=== PATIENT | female | born 1960 | race Two or more races ===

== ENCOUNTER → 2016-04-26 | Outpatient (CLI) | payer OTHER ==
[~2016-04-26] MED LIST: ALEV220C2 PO; BLACCAP2 PO; CLIN300C PO; GABA-283 PO; LASI20TA PO; MIRA1.5T2 PO; MULTCAP8 PO; NEXI40GR PO; TOPA25TA PO; ULTR50TA PO; VENL37.598 PO
--- NOTE | 2016-04-29 00:31 | ECWPNPC ---
PATIENT NAME: DERICK HAYWOOD : 1960 GENDER: FEMALE VISIT DATE: 04/26/2016 DISCHARGE DATE: 04/26/16 1633 VISIT LOCKED DATE TIME: PHYSICIAN: JESSA BUCIO RESOURCE: JESSA BUCIO REASON FOR APPOINTMENT 1. LUMBAR HISTORY OF PRESENT ILLNESS NEW PATIENT CONSULT: WHEN DID YOUR PAIN FIRST START? . BRIEFLY DESCRIBE HOW YOUR PAIN STARTED? . HOW DOES YOUR PAIN CHANGE WITH TIME? . DOES YOUR PAIN AWAKEN YOU FROM SLEEP? . HOW MANY HOURS OF SLEEP DO YOU NORMALLY GET? . ANY DIAGNOSTIC TESTING? . FACILITY WHERE TESTS WERE DONE? ____. PAIN TREATMENT TREATMENT YES CANCER HAVE YOU EVER HAD ANY TYPE OF CANCER?NO NO. PAIN SCREENING: PATIENT HAS A COMPLAINT OF ACUTE OR CHRONIC PAIN YES FALL RISK SCREENING: SCREENING :NO FALLS IN THE PAST YEAR [place] INVENTORY: QUESTIONNAIRE ASSESSEDYES SCORE VALUE CALCULATED YES SCORE: 6/63 DENIES SUICIDAL OR HOMICIDAL IDEATION TODAY'S VISIT: NOTES: REFERRED FROM [facility] NEUROLOGY DR. MICHAEL LEE) FOR CHRONIC LOW BACK PAIN AND IN PARTICULAR TO EXPLORE OPTIONS FOR DORSAL COLUMN STIMULATOR.. 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 THE INJURY WAS NOT UNDER WORKERS COMP. .INITIAL TREATMEN WAS ON [facility], WITH PT, AND MUSCLE RELAXERS, BUT EVENTUALLY SITUATION DETERIORATED AND UNDERWENT A DECOMPRESSION LAMINECTOMY [id number], AND THEN FUSION WITH ANTERIOR/POSTERIOR APPROACH AND CAGE PLACEMENT IN 2015. BOTH SURGERIES PERFORMED BY DR LEE. POST SURGERY , NOTES HAS HAD IMPROVEMENT IN BACK PAIN, BUT IS HAVING SEVERE PAIN IN LEFT LEG. PAIN IS WORSE WITH WALKING - HAS NUMBNESS FROM LATERAL MIDTHIGH TO OLMOS AND 2 MIDDLE TOES, LEFT SIDE. NUMBNESS IS CONSTANT AND PAIN ESCALATES WITH WALKING.. NO RADIATION SPEC FROM BACK HAS NO PAIN ON RIGHT OR WEAKNESS IN RIGHT LEG. STEPS ONE AT AT A TIME. HAS CONTINUED TO WORK NOW AT [employer]. HAS BEEN ABLE TO SLEEP. NOTES DIFFICULTY WITH BALANCE. FALL X 1 LAST YEAR WITH NO NEW INJURY. OCCASIONAL CONSTIPATION BUT NO LACK OF INTERNAL MUSCLE TONE. NO LOSS OF BLADDER CONTROL. NO RECENT PT - IS GOING TO GYM FOR BIKE WORK. HAS HAD INJECTION THERAPY IN THE PAST WITH DR GOLDBERG.HAS PCP DR MAJ MARTINEZ AT [place]. IS VERY INTERESTED IN OPTION OF DORSAL COLUMN STIMULATOR FOR PAIN CONTROL IN LEFT LEG. CURRENT MEDICATIONS TAKING VENLAFAXINE HCL 75 MG TABLET 1 TABLET WITH FOOD ORALLY DAILY TAKING NEXIUM 40 MG CAPSULE DELAYED RELEASE 1 CAPSULE ORALLY ONCE A DAY TAKING MIRAPEX ER 1.5 MG TABLET EXTENDED RELEASE 24 HOUR 1 TABLET ORALLY ONCE A DAY TAKING MULTI COMPLETE - CAPSULE ORALLY TAKING VITAMIN B12 100 MCG TABLET ORALLY TAKING VITAMIN D3 1000 UNIT CAPSULE 1 CAPSULE ORALLY EVERY OTHER DAY TAKING BIOTIN MAXIMUM STRENGTH 5000 MCG CAPSULE 1 CAPSULE ORALLY ONCE A DAY MEDICATION LIST REVIEWED AND RECONCILED WITH THE PATIENT PAST MEDICAL HISTORY NO MEDICAL HISTORY. ALLERGIES PENICILLIN (FOR ALLERGIES USE ONLY): HIVES: ALLERGY SULFA (FOR ALLERGY USE ONLY): HIVES: ALLERGY SURGICAL HISTORY HYSTERECTOMY 1992 GALL BLADDER 2004 TONSILLECTOMY 1977 SPINAL SURGERY - CAGE 2015 GASTRIC BYPASS 2013 FAMILY HISTORY FATHER: , DIAGNOSED WITH OTHER MOTHER: ALIVE 79 YRS, DIAGNOSED WITH DIABETES, HYPERTENSION 2 BROTHER(S) , 3 SISTER(S) - HEALTHY. 3 SON(S) - HEALTHY. . FATHER OF LUNG RELATED ISSUE. SOCIAL HISTORY GENERAL: TOBACCO USE ARE YOU A:NONSMOKER RECREATIONAL DRUG USE DRUG USE?NO CAFFEINE CAFFEINE USE?NO PSYCHOLOGICAL HX TREATMENTNO PAIN CLINIC PFS, CLERGY, PUBLIC HEALTH REFERRALS PFS REFERRAL NEEDED?NO CLERGY REFERRAL NEEDED?NO PUBLIC HEALTH REFERRAL NEEDED?NO WAS THE PROVIDER NOTIFIED OF ANY PERTINENT INFO?YES PATIENT: ____. [facility]VANCED DIRECTIVES HEALTH CARE PROXY?YES NAME OF HCP [facility] CONTACT # FOR HCP [phone] IF YES, DO YOU HAVE A COPY WITH YOU? NO DO YOU HAVE A DNR?NO LIVING WILL?NO POWER OF ACCOUNT ADVISOR?NO REVIEW OF SYSTEMS CONSTITUTIONAL: ANY CHANGE IN YOUR MEDICAL CONDITION? NO . CHILLS NO . FEVER NO . INFECTION: DO YOU HAVE NEW INFECTIONS? NO . DO YOU HAVE HISTORY OF MRSA? NO . MUSCULOSKELETAL: ANY NEW PATTERNS OF PAIN OR NUMBNESS? YES, PT STATES THAT SHE IS HAVING ISSUES WITH PAIN AND NUMBNESS STARTING MID-THIGH AND RADIATES DOWN LEG TO MID OLMOS, NUMBNESS GOES DOWN INTO TOES . SYTEMIC LUPUS NO . GASTROENTEROLOGY: ANY NEW CHANGE IN BOWEL CONTROL? NO . BARRETTS ESOPHAGUS NO . CIRRHOSIS NO . HEPATITIS NO . LIVER FAILURE NO . ACID REFLUX NO . UNEXPLAINED WEIGHT LOSS NO . GENITOURINARY: ANY NEW CHANGE IN BLADDER CONTROL? NO . IS THERE A CHANCE YOU COULD BE ? NO . HEMATOLOGY/LYMPH: DO YOU TAKE ANY BLOOD THINNERS? (FOR EXAMPLE- COUMADIN, PLAVIX, AGGRENOX, PLATEL, PRADAXA, OR XARELTO) NO . WHEN WAS YOUR LAST DOSE? DATE: TIME: . LOW PLATELET COUNT NO . SICKLE CELL DISEASE NO . VON WILLIEBRANDS NO . FACTOR V LEIDEN NO . THALLASEMIA NO . ANEMIA NO . EASY BRUISING NO . NEUROLOGY: MYAASTHENIA GRAVIS NO . RESTLESS LEG SYMPTOMS CURRENTLY ON THERAPY . CARDIOLOGY: DO YOU HAVE A PACEMAKER OR DEFIBRILLATOR? NO . ANGINA NO . HEART ATTACK NO . HEART SURGERY NO . CONGESTIVE HEART FAILURE/FLUID OVERLOAD NO . CHEST PAIN NO . HIGH BLOOD PRESSURE NO . IRREGULAR HEART BEAT NO . RESPIRATORY: HAVE YOU BEEN SICK IN THE PAST WEEK? NO . FEVER NO . FLU LIKE SYMPTOMS? NO . CPAP YES . BYPAP NO . ASTHMA NO . EMPHYSEMA NO . CHRONIC LUNG DISEASES NO . SHORTNESS OF BREATH ON EXERTION NO . DO YOU USE ANY TYPE OF TOBACCO (SMOKE, SMOKELESS, CHEW)? NO . COUGH NO . SNORING NO . INTEGUMENTARY: DO YOU HAVE ANY RASHES OR OPEN SORES? NO . ALLERGIC/IMMUNO: ARE YOU ALLERGIC TO SHELLFISH OR IV DYE? NO . ANY NEW ALLERGIES? NO . PSYCHIATRIC: DO YOU HAVE THOUGHTS OF HURTING YOURSELF OR SOMEONE ELSE? NO . ARE YOU ABUSED, NEGLECTED, OR IN AN UNSAFE ENVIRONMENT? NO . ENDOCRINOLOGY: ARE YOU DIABETIC? NO . THYROID DISORDER NO . OTHER: DO YOU NEED ANY PRESCRIPTIONS? NO . IF YES, PLEASE LIST: ____ . ANY NEW PROBLEMS WITH YOUR MEDICATIONS? NO . WHEN DID YOU LAST EAT? ____ . WHEN DID YOU LAST DRINK? ____ . WHAT DID YOU LAST DRINK? ____ . NAME OF PERSON DRIVING YOU HOME? ____ . DO YOU HAVE ANY OTHER QUESTIONS OR CONCERNS NO . REVIEWED BY: PROVIDER: JESSA DENISE . VITAL SIGNS WT 189.6 LBS, HT 66", BMI 30.60 INDEX, BP 136/84 MM HG, HR 84 /MIN, RR 16 /MIN, TEMP 98.3 F, OXYGEN SAT % 94, SAFE IN ENV? (Y/N) Y, NA INITIALS TL 1516, REVIEWED BY: XIAO. EXAMINATION GENERAL EXAMINATION: PSYCHALERT , ORIENTED X 3 , APPROPRIATE MOOD AND AFFECT , GOOD EYE CONTACT. HEENT:NORMOCEPHALIC, NO LYMPHADENOPATHY, NO THYROMEGLY. LUNGS:CLEAR TO AUSCULTATION BILATERALLY, NO WHEEZES, RALES OR RHONCHI. HEART:HEART RATE REGULAR, NORMAL S1S2, NO MURMURS, CLICK OR RUBS, NO CAROTID BRUITS. MUSCULOSKELETAL:WELL HEALED SURGICAL INCISION OVER MIDLINE LUMBAR SPINOUS PROCESSES AND 3 SMALLER INCISIONS ON EACH SIDE OF THE CENTER INCISION. ALSO HAS LEFT FLANK/ABDOMENAL INCISION. MINIMAL TENDERNESS OVER LUMBAR SPINOUS PROCESSES AND ACROSS THE SACRUM. SOME TENDERNESS NOTED AT THE BILATERAL LEFT > RIGHT SACRAL ILIAC JOINTS. NO PAIN WITH SLR OR PATRICKS TESTING. TENDERNESS WITH PELVIC COMPRESSION OVER LOW BACK. MUSCLE STRENGTH 5-/5BILATERAL LOWER EXTREMITIES. CAN FLEX TO 75 DEGREES, EXTEND TO 10 DEGREES, AND ROTATION SIDE TO SIDE IS POOR. . NEUROLOGIC EXAM:DECREASED SENSATION LEFT LATERAL THIGH AND CALF. DTR'S 1+ BILATERAL UPPER EXTREMITIES, 1+ LEFT LOWER EXTREMITY, 2+ RIGHT LOWER EXTREMITY. PLANTAR RESPONSE IS EQUIVICAL, NO CLONUS. DIAGNOSTIC TESTS REVIEWED XRAYS OF LUMBAR SPINE COMPLETED 11/10/15: DEMONSTRATES POSTOP CHANGES FOLLOWING LUMBAR FUSION AND DISCECTOMY FROM L2 THROUGH L5. APPARENT LUCENCY ACROSS THE ANTERIOR L2 -L3 DIES SPACE. THIS WAS DISCUSSED BY THE RADIOLOGIST WITH DR LEE. CONTINUED SURVEILLANCE RECOMMENDED. STABLE DEGENERATIVE DIS DISEASE AT L1-2 AND L4-5 . 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 WILL REQUEST PSYCH [facility] FOR DORSAL COLUMN STIM TRIAL. REFERRAL TO:[facility] REASON:REFERRED BY DR. LEE FOR DCS. PROCEDURE CODES FA211 ESTABILISHED PATIENT [facility] FACILITY CHARGE DISPOSITION & COMMUNICATION FOLLOW UP F?U WITH DR GOLDBERG TO DISCUSS DORSAL COLUMN STIM. ELECTRONICALLY SIGNED BY KAY FORRESTER ON 04/28/2016 AT 09:07 AM EST DISCLAIMER : THIS IS A VISIT SUMMARY EXTRACTED FROM THE [employer] CHART. IT IS NOT A COPY OF THE [employer] PROGRESS NOTE. MTDD
== END ==
LOC: M PAIN 15:20
PROVIDERS: ATTEND Nurse Practitioner Family
DX: G89.29 Other chronic pain (principal); M54.16 Radiculopathy, lumbar region; M96.1 Postlaminectomy syndrome, not elsewhere classified; Z88.0 Allergy status to penicillin; Z88.2 Allergy status to sulfonamides; Z79.899 Other long term (current) drug therapy

== ENCOUNTER → 2016-05-18 | Outpatient (CLI) | payer OTHER | END | disposition home or self-care (01) | LOC: M PAIN 15:40 | PROVIDERS: ATTEND Anesthesiology | DX: Z09 Encounter for follow-up examination after completed treatment for conditions other than malignant neoplasm (principal); G89.29 Other chronic pain; M96.1 Postlaminectomy syndrome, not elsewhere classified; M54.16 Radiculopathy, lumbar region; Z79.899 Other long term (current) drug therapy; Z88.0 Allergy status to penicillin; Z88.2 Allergy status to sulfonamides ==

== ENCOUNTER → 2016-05-29 | Outpatient (CLI) | payer OTHER ==
--- NOTE | 2016-05-29 19:02 | REP ---
MRI study of the thoracic spine without contrast: History: Sharp stabbing pain in the upper back. Left-sided leg and foot numbness. Technique: Sagittal and axial T1 and T2-weighted scans are acquired in the usual fashion with and without fat saturation. Sequences include spin echo, turbo spin-echo, and STIR imaging sequences. MRI findings: Thoracic vertebral body heights are preserved. Alignment is normal. Incidental note is made of an aberrant right subclavian artery coursing posterior to the trachea and esophagus in the upper mediastinum. No other extra spinal abnormality is appreciated. Cortical and medullary bone signal intensity are normal. Thoracic spinal cord is normal in coarse, caliber and signal intensity on T1 and T2-weighted scans. There is diffuse multilevel degenerative disc disease in the mid and lower thoracic spine levels. Sagittal and axial images demonstrate a right-sided focal disc herniation at the T7-8 level effacing the ventral margin of the thecal sac, but not compressing the cord. At T8-9, there is also a small right posterior disc protrusion. A small central disc protrusion is seen at T10-11. No other thoracic disc herniation is seen. No neural foraminal lesion is seen. Conus medullaris is normal in position and appearance at the T12-L1. Impression: Degenerative spondylosis changes as above with several small thoracic disc protrusions. No cord compression seen. Incidental note is made of an aberrant right subclavian artery. Signed by Jim Martinez MD 05/29/2016 07:39 P
== END ==
LOC: M RAD 15:19
PROVIDERS: ATTEND Nurse Practitioner Family
DX: Z12.31 Encounter for screening mammogram for malignant neoplasm of breast (principal); M54.16 Radiculopathy, lumbar region; M47.814 Spondylosis without myelopathy or radiculopathy, thoracic region; M51.24 Other intervertebral disc displacement, thoracic region
CPT/HCPCS: 72146; G0202

== ENCOUNTER → 2016-05-29 | Outpatient (CLI) | payer OTHER ==
--- NOTE | 2016-05-29 16:49 | REPMRS ---
Patient History The patient states she had a clinical breast exam in April 2016.Patient is postmenopausal. Took hormonal contraceptives for 2 years. Took unspecified hormones for 3 years. Digital Mammo Screening Bilat: May 29, 2016 - Exam #: [id number] Bilateral CC and MLO view(s) were taken. Technologist: Tiki Baltazar, Technologist Prior study comparison: September 26, 2013, bilateral bilat screen digital mammo, performed at [facility] 2011, bilateral bilat screen digital mammo, performed at [facility]. FINDINGS: There are scattered fibroglandular densities. There has been no change in the appearance of the mammogram from the prior studies. There is a mild amount of residual fibroglandular tissue which is fairly symmetric. There is no interval development of dominant mass, architectural distortion, or clustered microcalcification suggestive of malignancy. ASSESSMENT: BI-RADS/ACR category 1 mammogram. Negative. Recommendation Routine screening mammogram in 1 year (for women over age 40). This mammogram was interpreted with the aid of an FDA-approved computer-aided dectection system. Electronically Signed By: Zander Blount MD 05/29/16 2014
== END ==
LOC: M RAD 15:31
PROVIDERS: ATTEND Physician Assistant
DX: Z12.31 Encounter for screening mammogram for malignant neoplasm of breast (principal)

== ENCOUNTER → 2016-07-04 | Outpatient (CLI) | payer OTHER ==
--- NOTE | 2016-07-15 00:31 | ECWPNPC ---
PATIENT NAME: DERICK HAYWOOD : 1960 GENDER: FEMALE VISIT DATE: 07/04/2016 DISCHARGE DATE: 07/04/161653 VISIT LOCKED DATE TIME: PHYSICIAN: KAR GOLDBERG RESOURCE: KAR GOLDBERG HISTORY OF PRESENT ILLNESS HISTORY OF PRESENT ILLNESS: PAIN THE PATIENT DESCRIBES THE PAIN... 55 YEAR OLD FEMALE PATIENT WITH HISTORY OF CHRONIC LOW BACK PAIN. PATIENT DESCRIBES THE PAIN ACHING AND HAVING IT ALL THE TIME WITH A PAIN SCORE OF 5/10 ON TODAY'S VISIT. PATIENT REPORTS HURTING HER BACK IN 1999 WHILE MOVING A PATIENT. PATIENT HAS TRIED PHYSICAL THERAPY THAT DID NOT GIVE HER LONG LASTING RELIEF AND HAS ALSO TRIED INJECTIONS. PATIENT RECEIVED A BACK SURGERY IN 2015 AND STATES THAT IT DID AID IN PAIN RELIEF BUT SHE STILL HAS PAIN DAILY. PATIENT REPORTS THAT SHE HAS COMPLETED THE PSYCHOLOGICAL EVALUATION. PATIENT DENIES UNEXPLAINABLE WEIGHT LOSS, FEVER, CHILLS, NEW CHANGES ON HER URINARY OR BOWEL CONTROL. FALL RISK SCREENING: SCREENING :NO FALLS IN THE PAST YEAR CURRENT MEDICATIONS TAKING GABAPENTIN 300 MG CAPSULE 1 CAPSULE ORALLY FOR PAIN THREE TIMES A DAY, NOTES: ONLY TAKES TWICE A DAY TAKING VENLAFAXINE HCL 75 MG TABLET 1 TABLET WITH FOOD ORALLY DAILY TAKING NEXIUM 40 MG CAPSULE DELAYED RELEASE 1 CAPSULE ORALLY ONCE A DAY TAKING MIRAPEX ER 1.5 MG TABLET EXTENDED RELEASE 24 HOUR 1 TABLET ORALLY ONCE A DAY TAKING MULTI COMPLETE - CAPSULE ORALLY TAKING VITAMIN B12 100 MCG TABLET ORALLY TAKING VITAMIN D3 1000 UNIT CAPSULE 1 CAPSULE ORALLY EVERY OTHER DAY TAKING BIOTIN MAXIMUM STRENGTH 5000 MCG CAPSULE 1 CAPSULE ORALLY ONCE A DAY MEDICATION LIST REVIEWED AND RECONCILED WITH THE PATIENT ALLERGIES PENICILLIN (FOR ALLERGIES USE ONLY): HIVES: ALLERGY SULFA (FOR ALLERGY USE ONLY): HIVES: ALLERGY REVIEW OF SYSTEMS CONSTITUTIONAL: ANY CHANGE IN YOUR MEDICAL CONDITION? NO . CHILLS NO . FEVER NO . INFECTION: DO YOU HAVE NEW INFECTIONS? NO . DO YOU HAVE HISTORY OF MRSA? NO . MUSCULOSKELETAL: ANY NEW PATTERNS OF PAIN OR NUMBNESS? YES, PAIN IN TOES NOW IS NUMB AND TOP OF THE FOOT IS NUMB TOO . GASTROENTEROLOGY: ANY NEW CHANGE IN BOWEL CONTROL? NO . GENITOURINARY: ANY NEW CHANGE IN BLADDER CONTROL? NO . IS THERE A CHANCE YOU COULD BE ? NO . HEMATOLOGY/LYMPH: DO YOU TAKE ANY BLOOD THINNERS? (FOR EXAMPLE- COUMADIN, PLAVIX, AGGRENOX, PLATEL, PRADAXA, OR XARELTO) NO . WHEN WAS YOUR LAST DOSE? DATE: TIME: . NEUROLOGY: HAVE YOU FALLEN IN THE PAST 6 MONTHS? YES, STUMBLED YESTERDAY AND FELL WITHIN LAST 4 MONTHS . ANY NEW EXTREMITY NUMBNESS OR WEAKNESS? NO . CARDIOLOGY: DO YOU HAVE A PACEMAKER OR DEFIBRILLATOR? NO . RESPIRATORY: HAVE YOU BEEN SICK IN THE PAST WEEK? NO . FEVER NO . FLU LIKE SYMPTOMS? NO . COUGH NO . INTEGUMENTARY: DO YOU HAVE ANY RASHES OR OPEN SORES? NO . ALLERGIC/IMMUNO: ARE YOU ALLERGIC TO SHELLFISH OR IV DYE? NO . ANY NEW ALLERGIES? NO . PSYCHIATRIC: DO YOU HAVE THOUGHTS OF HURTING YOURSELF OR SOMEONE ELSE? NO . ARE YOU ABUSED, NEGLECTED, OR IN AN UNSAFE ENVIRONMENT? NO . ENDOCRINOLOGY: ARE YOU DIABETIC? NO . OTHER: DO YOU NEED ANY PRESCRIPTIONS? NO . IF YES, PLEASE LIST: ____ . ANY NEW PROBLEMS WITH YOUR MEDICATIONS? NO . WHEN DID YOU LAST EAT? ____ . WHEN DID YOU LAST DRINK? ____ . WHAT DID YOU LAST DRINK? ____ . NAME OF PERSON DRIVING YOU HOME? ____ . DO YOU HAVE ANY OTHER QUESTIONS OR CONCERNS NO . REVIEWED BY: PROVIDER: . VITAL SIGNS WT 197.0 LBS, HT 66", BMI 31.79 INDEX, BP 129/77 MM HG, HR 84 /MIN, RR 16 /MIN, TEMP 98.5 F, OXYGEN SAT % 97%, NA INITIALS TL 1526. EXAMINATION : PATIENT IS ALERT O X 3 AND COOPERATIVE. ANTALGIC GAIT. LIMPING FROM LEFT LEG. THERE IS TENDERNESS IN THE LOW BACK PARASPINAL SPINAL MUSCLE GROUP. LEFT LEG IS WEAKER THEN THE RIGHT AT EXTENSION AND FLEXION. MRI OF THE LUMBAR SPINE DONE ON 12/15/15 SHOWS POSTOPERATIVE CHANGES, STENOSIS AT L4-L5, HYPERTROPHY, AND FLUID FROM L2-L3 TO L3-L4. ASSESSMENTS SPONDYLOSIS WITHOUT MYELOPATHY OR RADICULOPATHY, LUMBAR REGION - M47.816 (PRIMARY) SPONDYLOSIS WITHOUT MYELOPATHY OR RADICULOPATHY, LUMBOSACRAL REGION - M47.817 LOW BACK PAIN - M54.5 TREATMENT SPONDYLOSIS WITHOUT MYELOPATHY OR RADICULOPATHY, LUMBAR REGION NOTES: WE DISCUSSED SEVERAL ISSUES WITH [facility]'S PAIN MANAGEMENT CASE. AT THIS TIME THE PATIENT WILL CONTINUE ON THE SAME MEDICATION REGIMEN BEFORE. I DISCUSSED WITH THE PATIENT ABOUT THE RESULTS OF THE THORACIC MRI DONE ON 05/29/2016 THAT SHOWS AN INCIDENTAL NOTE IS MADE OF AN ABERRANT RIGHT SUBCLAVIAN ARTERY COURSING POSTERIOR TO THE TRACHEA AND ESOPHAGUS IN THE UPPER MEDIASTINUM. AFTER EXAMINING THE PATIENT AND REVIEWING THE LUMBAR MRI, PATIENT IS A GOOD CANDIDATE FOR A LUMBAR FACET BLOCK INJECTION THERAPEUTIC. WE DISCUSSED THE RISK, BENEFITS, AND ALTERNATIVES AND THE PATIENT WOULD LIKE TO PROCEED, PATIENT WILL BE BOOKED PENDING APPROVAL. PATIENT REPORTS THAT SHE IS SEEING DR. LEE IN 2 TO 3 WEEKS FOR ANOTHER CONSULT. PATIENT WILL FOLLOW UP WITH ME IN 3 WEEKS. INSTRUCTIONS WERE GIVEN, QUESTIONS WERE ANSWERED, PATIENT REPORTS UNDERSTANDING AND AGREES WITH THE PLAN. I, SHIREEN CASTANEDA, DOCUMENTED THE ABOVE INFORMATION ACTING A SCRIBE FOR DR. GOLDBERG. I HAVE REVIEWED THE ABOVE DOCUMENT, WRITTEN BY SHIREEN CASTANEDA SCRIBBlair AND I VERIFY THAT IT IS ACCURATE. PROCEDURE CODES FA211 ESTABILISHED PATIENT [facility] CHARGE G8730 PAIN ASSESS POS TOOL F/U PLAN DOC G8427 DOC MEDS VERIFIED W/PT OR RE DISPOSITION & COMMUNICATION FOLLOW UP 3 WEEKS ELECTRONICALLY SIGNED BY KAR GOLDBERG MD ON 07/14/2016 AT 04:03 PM EDT DISCLAIMER : THIS IS A VISIT SUMMARY EXTRACTED FROM THE [employer] CHART. IT IS NOT A COPY OF THE [employer] PROGRESS NOTE. CATERINA
== END ==
LOC: M PAIN 15:00
PROVIDERS: ATTEND Anesthesiology
DX: M47.816 Spondylosis without myelopathy or radiculopathy, lumbar region (principal); M47.817 Spondylosis without myelopathy or radiculopathy, lumbosacral region; M54.5 Low back pain; G89.29 Other chronic pain; Z88.0 Allergy status to penicillin; Z88.3 Allergy status to other anti-infective agents; Z79.899 Other long term (current) drug therapy

== ENCOUNTER → 2016-07-28 | Outpatient (CLI) | payer OTHER ==
--- NOTE | 2016-08-08 02:29 | ECWPNPC ---
PATIENT NAME: DERICK HAYWOOD : 1960 GENDER: FEMALE VISIT DATE: 07/28/2016 DISCHARGE DATE: 07/28/16 1529 VISIT LOCKED DATE TIME: PHYSICIAN: KAR GOLDBERG RESOURCE: AKR GOLDBERG REASON FOR APPOINTMENT 1. LOW BACK PAIN HISTORY OF PRESENT ILLNESS HISTORY OF PRESENT ILLNESS: PAIN THE PATIENT DESCRIBES THE PAIN... 55 YEAR OLD FEMALE PATIENT WITH HISTORY OF CHRONIC LOW BACK PAIN. PATIENT DESCRIBES THE PAIN ACHING AND HAVING IT ALL THE TIME WITH A PAIN SCORE OF 5/10 ON TODAY'S VISIT. PATIENT REPORTS HURTING HER BACK IN 1999 WHILE MOVING A PATIENT. PATIENT HAS TRIED PHYSICAL THERAPY THAT DID NOT GIVE HER LONG LASTING RELIEF AND HAS ALSO TRIED INJECTIONS. PATIENT RECEIVED A BACK SURGERY IN 2015 AND STATES THAT IT DID AID IN PAIN RELIEF BUT SHE STILL HAS PAIN DAILY .PATIENT DENIES UNEXPLAINABLE WEIGHT LOSS, FEVER, CHILLS, NEW CHANGES ON HER URINARY OR BOWEL CONTROL. FALL RISK SCREENING: SCREENING :NO FALLS IN THE PAST YEAR CURRENT MEDICATIONS TAKING GABAPENTIN 300 MG CAPSULE 1 CAPSULE ORALLY FOR PAIN 2 TIMES A DAY TAKING VENLAFAXINE HCL 75 MG TABLET 1 TABLET WITH FOOD ORALLY DAILY TAKING NEXIUM 40 MG CAPSULE DELAYED RELEASE 1 CAPSULE ORALLY ONCE A DAY TAKING MIRAPEX ER 1.5 MG TABLET EXTENDED RELEASE 24 HOUR 1 TABLET ORALLY ONCE A DAY TAKING MULTI COMPLETE - CAPSULE ORALLY DAILY TAKING VITAMIN B12 100 MCG TABLET ORALLY EVERY OTHER DAY TAKING VITAMIN D3 1000 UNIT CAPSULE 1 CAPSULE ORALLY ONCE A DAY TAKING BIOTIN MAXIMUM STRENGTH 5000 MCG CAPSULE 1 CAPSULE ORALLY ONCE A DAY MEDICATION LIST REVIEWED AND RECONCILED WITH THE PATIENT PAST MEDICAL HISTORY CHRONIC PAIN ALLERGIES PENICILLIN (FOR ALLERGIES USE ONLY): HIVES: ALLERGY SULFA (FOR ALLERGY USE ONLY): HIVES: ALLERGY SURGICAL HISTORY HYSTERECTOMY 1992 GALL BLADDER 2004 TONSILLECTOMY 1978 SPINAL SURGERY - CAGE 2016 GASTRIC BYPASS 2014 FAMILY HISTORY FATHER: , DIAGNOSED WITH OTHER MOTHER: ALIVE 79 YRS, DIAGNOSED WITH DIABETES, HYPERTENSION FATHER OF LUNG RELATED ISSUE. SOCIAL HISTORY GENERAL: TOBACCO USE ARE YOU A:NONSMOKER RECREATIONAL DRUG USE DRUG USE?NO CAFFEINE CAFFEINE USE?NO DENOMINATIONAL DENOMINATIONAL NO PREFERENCE LEARNING BARRIERS / SPECIAL NEEDS CHANGE FROM LAST VISIT?NO BARRIERS TO LEARNING?NO HEARING IMPAIRED?NO VISION IMPAIRED?YES :CORRECTIVE LENSES COGNITIVELY IMPAIRED?NO READINESS TO LEARN?NO LEARNING PREFERENCES?NO LEARNING CAPABILITIES PRESENT?NO EMOTIONAL BARRIERS?NO SPECIAL DEVICES?NO CONTROL SYSTEMS DRAFTING OFFICER NEEDED?NO PSYCHOLOGICAL HX TREATMENTNO PAIN CLINIC PFS, CLERGY, PUBLIC HEALTH REFERRALS PFS REFERRAL NEEDED?NO CLERGY REFERRAL NEEDED?NO PUBLIC HEALTH REFERRAL NEEDED?NO WAS THE PROVIDER NOTIFIED OF ANY PERTINENT INFO?YES PATIENT: ____. [facility] DIRECTIVES HEALTH CARE PROXY?YES NAME OF HCP [facility] CONTACT # FOR HCP [phone] DO YOU HAVE A COPY WITH YOU? NO POWER OF SENIOR REACTOR OPERATOR?NO HOSPITALIZATION/MAJOR DIAGNOSTIC PROCEDURE SURGERIES REVIEW OF SYSTEMS CONSTITUTIONAL: ANY CHANGE IN YOUR MEDICAL CONDITION? NO . CHILLS NO . FEVER NO . INFECTION: DO YOU HAVE NEW INFECTIONS? NO . DO YOU HAVE HISTORY OF MRSA? NO . MUSCULOSKELETAL: ANY NEW PATTERNS OF PAIN OR NUMBNESS? NO . GASTROENTEROLOGY: ANY NEW CHANGE IN BOWEL CONTROL? NO . GENITOURINARY: ANY NEW CHANGE IN BLADDER CONTROL? NO . IS THERE A CHANCE YOU COULD BE ? NO . HEMATOLOGY/LYMPH: DO YOU TAKE ANY BLOOD THINNERS? (FOR EXAMPLE- COUMADIN, PLAVIX, AGGRENOX, PLATEL, PRADAXA, OR XARELTO) NO . WHEN WAS YOUR LAST DOSE? DATE: TIME: . NEUROLOGY: HAVE YOU FALLEN IN THE PAST 6 MONTHS? YES . ANY NEW EXTREMITY NUMBNESS OR WEAKNESS? NO . CARDIOLOGY: DO YOU HAVE A PACEMAKER OR DEFIBRILLATOR? NO . RESPIRATORY: HAVE YOU BEEN SICK IN THE PAST WEEK? NO . FEVER NO . FLU LIKE SYMPTOMS? NO . COUGH NO . INTEGUMENTARY: DO YOU HAVE ANY RASHES OR OPEN SORES? NO . ALLERGIC/IMMUNO: ARE YOU ALLERGIC TO SHELLFISH OR IV DYE? NO . ANY NEW ALLERGIES? NO . PSYCHIATRIC: DO YOU HAVE THOUGHTS OF HURTING YOURSELF OR SOMEONE ELSE? NO . ARE YOU ABUSED, NEGLECTED, OR IN AN UNSAFE ENVIRONMENT? NO . ENDOCRINOLOGY: ARE YOU DIABETIC? NO . OTHER: DO YOU NEED ANY PRESCRIPTIONS? NO . IF YES, PLEASE LIST: ____ . ANY NEW PROBLEMS WITH YOUR MEDICATIONS? NO . WHEN DID YOU LAST EAT? ____ . WHEN DID YOU LAST DRINK? ____ . WHAT DID YOU LAST DRINK? ____ . NAME OF PERSON DRIVING YOU HOME? ____ . DO YOU HAVE ANY OTHER QUESTIONS OR CONCERNS NO . REVIEWED BY: PROVIDER: KAR GOLDBERG MD . VITAL SIGNS WT 198.8 LBS, HT 66", BMI 32.08 INDEX, BP 123/73 MM HG, HR 78 /MIN, RR 16 /MIN, TEMP 99.6 F, OXYGEN SAT % 98%, NA INITIALS SC14:42, REVIEWED BY: PETTY. EXAMINATION : PATIENT IS ALERT O X 3 AND COOPERATIVE. ANTALGIC GAIT. LIMPING FROM LEFT LEG. THERE IS TENDERNESS IN THE LOW BACK PARASPINAL SPINAL MUSCLE GROUP. LEFT LEG IS WEAKER THEN THE RIGHT AT EXTENSION AND FLEXION. MRI OF THE LUMBAR SPINE DONE ON 12/15/15 SHOWS POSTOPERATIVE CHANGES, STENOSIS AT L4-L5, HYPERTROPHY, AND FLUID FROM L2-L3 TO L3-L4. THORACIC MRI SHOWS ENOUGH ROOM FOR THE LEADS TO PASS THROUGH. ASSESSMENTS LOW BACK PAIN - M54.5 (PRIMARY) RADICULOPATHY, LUMBAR REGION - M54.16 TREATMENT LOW BACK PAIN NOTES: WE DISCUSSED SEVERAL ISSUES WITH MRS. [facility]'S PAIN MANAGEMENT CASE. AT THIS TIME THE PATIENT WILL CONTINUE USING GABAPENTIN FOR THE NEUROPATHIC PAIN. PATIENT'S LUMBAR AND THORACIC MRI SHOWS ENOUGH ROOM FOR THE LEADS TO PASS AND THE PATIENT HAS COMPLETED THE PSYCHOLOGICAL EVALUATION. AT THIS TIME WE WILL REQUEST AUTHORIZATION FOR THE DCS TRIAL. PATIENT IS AWARE OF THE RISKS, BENEFITS, AND ALTNERATIVES TO THE DCS AND SHE WOULD LIKE TO PROCEED AT THIS TIME. INSTRUCTIONS WERE GIVEN, QUESTIONS WERE ANSWERED, PATIENT REPORTS UNDERSTANDING AND AGREES WITH THE PLAN. I, NEREYDA SCRUGGS, DOCUMENTED THE ABOVE INFORMATION ACTING A SCRIBE FOR DR. GOLDBERG. I HAVE REVIEWED THE ABOVE DOCUMENT, WRITTEN BY NEREYDA HAYS AND I VERIFY THAT IT IS ACCURATE. OTHERS REFILL GABAPENTIN CAPSULE, 300 MG, 1 CAPSULE, ORALLY FOR PAIN, BID FOR PAIN, 30 DAY(S), 60, REFILLS 2 PROCEDURE CODES FA211 ESTABILISHED PATIENT [facility] FACILITY CHARGE G8427 DOC MEDS VERIFIED W/PT OR RE G8730 PAIN ASSESS POS TOOL F/U PLAN DOC DISPOSITION & COMMUNICATION FOLLOW UP 6 WEEKS ELECTRONICALLY SIGNED BY KAR GOLDBERG MD ON 08/07/2016 AT 03:35 PM EDT DISCLAIMER : THIS IS A VISIT SUMMARY EXTRACTED FROM THE [employer] CHART. IT IS NOT A COPY OF THE [employer] PROGRESS NOTE. MTDD
== END ==
LOC: M PAIN 14:00
PROVIDERS: ATTEND Anesthesiology
DX: M54.16 Radiculopathy, lumbar region (principal); G89.29 Other chronic pain; Z79.899 Other long term (current) drug therapy; Z88.0 Allergy status to penicillin; Z88.2 Allergy status to sulfonamides

== ENCOUNTER → 2016-10-26 | Outpatient (CLI) | payer OTHER ==
[~2016-10-26] MED LIST changes: +PROT1TAB2 PO
--- NOTE | 2016-10-27 23:50 | ECWPNPC ---
PATIENT NAME: DERICK HAYWOOD : 1960 GENDER: FEMALE VISIT DATE: 10/26/2016 DISCHARGE DATE: 10/26/16 1620 VISIT LOCKED DATE TIME: PHYSICIAN: KAR GOLDBERG RESOURCE: KAR GOLDBERG REASON FOR APPOINTMENT 1. PRE OP HISTORY OF PRESENT ILLNESS HISTORY OF PRESENT ILLNESS: PAIN THE PATIENT DESCRIBES THE PAIN... 55 YEAR OLD FEMALE PATIENT WITH HISTORY OF CHRONIC LOW BACK PAIN. PATIENT DESCRIBES THE PAIN ACHING AND HAVING IT ALL THE TIME. PATIENT HAS A PAIN SCORE OF 4/10 AT TODAY'S VISIT. PATIENT REPORTS HURTING HER BACK IN 1999 WHILE MOVING A PATIENT. MRS. HAYWOOD HAS TRIED PHYSICAL THERAPY THAT DID NOT GIVE HER LONG LASTING RELIEF AND HAS ALSO TRIED INJECTIONS. PATIENT RECEIVED A BACK SURGERY IN 2015 AND STATES THAT IT DID AID IN PAIN RELIEF BUT SHE STILL HAS PAIN DAILY. PATIENT REPORTS THAT SHE HAS COMPLETED THE PSYCHOLOGICAL EVALUATION AND HAS HAD A LUMBAR MRI AND A THORACIC MRI. MRS. HAYWOOD STATES THAT SHE DOES WANT TO MOVE FORWARD WITH THE DCS TRIAL WITH [employer] BUT WANTS TO WAIT TILL DECEMBER TO DO IT. PATIENT HAS PATIENT DENIES UNEXPLAINABLE WEIGHT LOSS, FEVER, CHILLS, NEW CHANGES ON HER URINARY OR BOWEL CONTROL. FALL RISK SCREENING: SCREENING :NO FALLS IN THE PAST YEAR CURRENT MEDICATIONS TAKING GABAPENTIN 300 MG CAPSULE 1 CAPSULE ORALLY FOR PAIN BID FOR PAIN TAKING VENLAFAXINE HCL 75 MG TABLET 1 TABLET WITH FOOD ORALLY DAILY TAKING MIRAPEX ER 1.5 MG TABLET EXTENDED RELEASE 24 HOUR 1 TABLET ORALLY ONCE A DAY TAKING MULTI COMPLETE - CAPSULE ORALLY DAILY TAKING VITAMIN B12 100 MCG TABLET ORALLY EVERY OTHER DAY TAKING VITAMIN D3 1000 UNIT CAPSULE 1 CAPSULE ORALLY ONCE A DAY TAKING BIOTIN MAXIMUM STRENGTH 5000 MCG CAPSULE 1 CAPSULE ORALLY ONCE A DAY TAKING PROTONIX 40 MG TABLET DELAYED RELEASE 1 TABLET ORALLY ONCE A DAY TAKING PREVACID 15 MG CAPSULE DELAYED RELEASE 1 CAPSULE ORALLY ONCE A DAY NOT-TAKING NEXIUM 40 MG CAPSULE DELAYED RELEASE 1 CAPSULE ORALLY ONCE A DAY MEDICATION LIST REVIEWED AND RECONCILED WITH THE PATIENT PAST MEDICAL HISTORY CHRONIC PAIN ALLERGIES PENICILLIN (FOR ALLERGIES USE ONLY): HIVES: ALLERGY SULFA (FOR ALLERGY USE ONLY): HIVES: ALLERGY SURGICAL HISTORY HYSTERECTOMY 1992 GALL BLADDER 2004 TONSILLECTOMY 1977 SPINAL SURGERY - CAGE 2016 GASTRIC BYPASS 2013 FAMILY HISTORY FATHER: , DIAGNOSED WITH OTHER MOTHER: ALIVE 79 YRS, DIAGNOSED WITH DIABETES, HYPERTENSION SON(S): ALIVE 2 BROTHER(S) , 3 SISTER(S) . FATHER OF LUNG RELATED ISSUEPT HAS 3 SONS. SOCIAL HISTORY GENERAL: TOBACCO USE ARE YOU A:FORMER SMOKER HOW LONG HAS IT BEEN SINCE YOU LAST SMOKED?> 10 YEARS LUNG CANCER SCREENING SMOKING STATUS:FORMER SMOKER RECREATIONAL DRUG USE DRUG USE?NO CAFFEINE CAFFEINE USE?NO RASTAFARIAN RASTAFARIAN NO PREFERENCE LEARNING BARRIERS / SPECIAL NEEDS CHANGE FROM LAST VISIT?NO BARRIERS TO LEARNING?NO HEARING IMPAIRED?NO VISION IMPAIRED?YES :CORRECTIVE LENSES COGNITIVELY IMPAIRED?NO READINESS TO LEARN?NO LEARNING PREFERENCES?NO LEARNING CAPABILITIES PRESENT?NO EMOTIONAL BARRIERS?NO SPECIAL DEVICES?NO ORANGE GROWER NEEDED?NO PSYCHOLOGICAL HX TREATMENTNO PAIN CLINIC PFS, CLERGY, PUBLIC HEALTH REFERRALS PFS REFERRAL NEEDED?NO CLERGY REFERRAL NEEDED?NO PUBLIC HEALTH REFERRAL NEEDED?NO WAS THE PROVIDER NOTIFIED OF ANY PERTINENT INFO?YES HAS THE PATIENT BEEN EDUCATED REGARDING HIS/HER PLAN OF CARE?YES HAS THE PATIENT BEEN EDUCATED REGARDING PAIN, THE RISK FOR PAIN, THE IMPORTANCE OF EFFECTIVE PAIN MANAGEMENT, AND THE PAIN ASSESSMENT PROCESS?YES PATIENT: ____. ADVANCE DIRECTIVES HEALTH CARE PROXY?YES NAME OF HCP [facility] CONTACT # FOR HCP [phone] DO YOU HAVE A COPY WITH YOU? NO DO YOU HAVE A DNR?NO WOULD YOU LIKE MORE INFORMATION?NO LIVING WILL?YES DO YOU HAVE A COPY WITH YOU?NO POWER OF GROUND EQUIPMENT MECHANIC?NO HOSPITALIZATION/MAJOR DIAGNOSTIC PROCEDURE SURGERIES REVIEW OF SYSTEMS REVIEWED BY: PROVIDER: KAR GOLDBERG MD . CONSTITUTIONAL: ANY CHANGE IN YOUR MEDICAL CONDITION? NO . CHILLS NO . FEVER NO . INFECTION: DO YOU HAVE NEW INFECTIONS? NO . DO YOU HAVE HISTORY OF MRSA? NO . MUSCULOSKELETAL: ANY NEW PATTERNS OF PAIN OR NUMBNESS? NO . GASTROENTEROLOGY: ANY NEW CHANGE IN BOWEL CONTROL? NO . GENITOURINARY: ANY NEW CHANGE IN BLADDER CONTROL? NO . IS THERE A CHANCE YOU COULD BE ? NO . HEMATOLOGY/LYMPH: DO YOU TAKE ANY BLOOD THINNERS? (FOR EXAMPLE- COUMADIN, PLAVIX, AGGRENOX, PLATEL, PRADAXA, OR XARELTO) NO . WHEN WAS YOUR LAST DOSE? DATE: TIME: . NEUROLOGY: HAVE YOU FALLEN IN THE PAST 6 MONTHS? NO . ANY NEW EXTREMITY NUMBNESS OR WEAKNESS? NO . CARDIOLOGY: DO YOU HAVE A PACEMAKER OR DEFIBRILLATOR? NO . RESPIRATORY: HAVE YOU BEEN SICK IN THE PAST WEEK? YES, PT STATES SHE HAD LARYNGITIS AND IS RECOVERING . FEVER NO . FLU LIKE SYMPTOMS? NO . COUGH NO . INTEGUMENTARY: DO YOU HAVE ANY RASHES OR OPEN SORES? NO . ALLERGIC/IMMUNO: ARE YOU ALLERGIC TO SHELLFISH OR IV DYE? NO . ANY NEW ALLERGIES? NO . PSYCHIATRIC: DO YOU HAVE THOUGHTS OF HURTING YOURSELF OR SOMEONE ELSE? NO . ARE YOU ABUSED, NEGLECTED, OR IN AN UNSAFE ENVIRONMENT? NO . ENDOCRINOLOGY: ARE YOU DIABETIC? NO . OTHER: DO YOU NEED ANY PRESCRIPTIONS? NO . IF YES, PLEASE LIST: ____ . ANY NEW PROBLEMS WITH YOUR MEDICATIONS? NO . WHEN DID YOU LAST EAT? ____ . WHEN DID YOU LAST DRINK? ____ . WHAT DID YOU LAST DRINK? ____ . NAME OF PERSON DRIVING YOU HOME? ____ . DO YOU HAVE ANY OTHER QUESTIONS OR CONCERNS NO . VITAL SIGNS WT 204 LBS, HT 66", BMI 32.92 INDEX, BP 115/74 MM HG, HR 74 /MIN, RR 16 /MIN, TEMP 96.0 F, OXYGEN SAT % 96%, NA INITIALS AW 1357, REVIEWED BY: EM. EXAMINATION : PATIENT IS ALERT O X 3 AND COOPERATIVE. ANTALGIC GAIT. LIMPING FROM LEFT LEG. THERE IS TENDERNESS IN THE LOW BACK PARASPINAL SPINAL MUSCLE GROUP. LEFT LEG IS WEAKER THEN THE RIGHT AT EXTENSION AND FLEXION. LUMBAR MRI DONE ON 12/15/15 SHOWS THAT THERE ARE CYSTIC CHANGES WITHIN THE INFERIOR ENDPLATE OF L2 AND L3 AND THE SUPERIOR ENDPLATE OF L4. THERE IS FLUID WITHIN THE INTERVERTEBRAL DISC SPACES AT L2-3 AND L3-4. THERE IS ALSO FLUID IDENTIFIED WITHIN THE CENTER IF THE INTERBODY SPACER AT L3-4 LEVEL. THORACIC MRI DONE ON 05/29/16 SHOWS THAT THERE IS AN ABERRANT RIGHT SUBCLAVIAN ARTERY COURSING POSTERIOR TO THE TRACHEA AND ESOPHAGUS IN THE UPPER MEDIASTINUM; NO OTHER EXTRA SPINAL ABNORMALITY IS APPRECIATED. ASSESSMENTS SPONDYLOSIS WITHOUT MYELOPATHY OR RADICULOPATHY, LUMBAR REGION - M47.816 (PRIMARY) SPONDYLOSIS WITHOUT MYELOPATHY OR RADICULOPATHY, LUMBOSACRAL REGION - M47.817 LOW BACK PAIN - M54.5 TREATMENT SPONDYLOSIS WITHOUT MYELOPATHY OR RADICULOPATHY, LUMBAR REGION CLINICAL NOTES: WE DISCUSSED SEVERAL ISSUES WITH MRS. HAYWOOD'S PAIN MANAGEMENT CASE. AT THIS TIME THE PATIENT WANTS TO MOVE FORWARD WITH THE DCS TRIAL AND WANTS [employer]. PATIENT STATES THAT SHE WANTS TO WAIT TO RECEIVE THE TRIAL IN DECEMBER. WE DISCUSSED THE POSSIBILITY OF SEEING A ORTHOPAEDIC SURGEON DUE TO THE PATIENT STATING THAT HER MAIN PAIN IS IN HER LEFT KNEE AND IT GOES DOWN HER LEG. MRS. AHYWOOD STATED THAT SHE DOES NOT WANT TO SEE A ORTHOPAEDIC SURGEON AND BELIEVES THAT HER PAIN THAT IS IN HER KNEE IS ASSOCIATED FROM HER BACK PAIN. I DISCUSSED WITH THE PATIENT ABOUT THE RESULTS OF THE THORACIC MRI DONE ON 05/29/2016 THAT SHOWS AN INCIDENTAL NOTE IS MADE OF AN ABERRANT RIGHT SUBCLAVIAN ARTERY COURSING POSTERIOR TO THE TRACHEA AND ESOPHAGUS IN THE UPPER MEDIASTINUM; MRS. HAYWOOD STATES THAT SHE DID TALK TO HER DOCTOR ABOUT THE MRI FINDINGS AND THE DOCTOR SAID THERE WAS NOTHING TO WORRY ABOUT. I WILL TALK TO THE RADIOLOGIST JUST TO DOUBLE CHECK TO MAKE SURE THERE IS NO CONCERN FOR HER TO RECEIVE THE DCS TRIAL. PATIENT HAS HAD HER PSYCHOLOGICAL EVALUATION, AND HER LUMBAR MRI, AND HER THORACIC MRI. WE ARE NOW WAITING FOR APPROVAL FOR HER TO RECEIVE THE TRIAL. WE DISCUSSED THAT SHE WILL HAVE TO GET CLEARANCE FROM HER PRIMARY CARE PHYSICIAN BEFORE WE ARE ABLE TO BOOK HER FOR THE TRIAL AFTER IT IS APPROVED. I ADVISED THE PATIENT THAT SHE WILL HAVE TO STOP ALL BLOOD THINNERS 10 DAYS BEFORE THE SCHEDULED TRIAL. WE TALKED ABOUT HER ALLERGIC REACTION TO PENICILLIN AND SULFA DUE TO HER HAVING TO TAKE AN ANTIBIOTIC AFTER THE TRIAL IS PLACED. WE DISCUSSED THE RISK, BENEFITS, AND ALTERNATIVES AND THE PATIENT WOULD LIKE TO PROCEED, PATIENT WILL FOLLOW UP WITH ME IN 1 MONTH. INSTRUCTIONS WERE GIVEN, QUESTIONS WERE ANSWERED, PATIENT REPORTS UNDERSTANDING AND AGREES WITH THE PLAN. I, HILDA TURPIN, DOCUMENTED THE ABOVE INFORMATION ACTING A SCRIBE FOR DR. GOLDBERG. I HAVE REVIEWED THE ABOVE DOCUMENT, WRITTEN BY IHLDA HAYS AND I VERIFY THAT IT IS ACCURATE. PROCEDURE CODES FA211 ESTABILISHED PATIENT [facility] FACILITY CHARGE 88195 OFFICE/OUTPATIENT VISIT EST G8427 DOC MEDS VERIFIED W/PT OR RE G8730 PAIN ASSESS POS TOOL F/U PLAN DOC DISPOSITION & COMMUNICATION FOLLOW UP 4 WEEKS ELECTRONICALLY SIGNED BY KAR GOLDBERG MD ON 10/27/2016 AT 06:52 PM EDT DISCLAIMER : THIS IS A VISIT SUMMARY EXTRACTED FROM THE [employer] CHART. IT IS NOT A COPY OF THE [employer] PROGRESS NOTE. MTDD
== END ==
LOC: M PAIN 13:45
PROVIDERS: ATTEND Anesthesiology
DX: M47.816 Spondylosis without myelopathy or radiculopathy, lumbar region (principal); M47.817 Spondylosis without myelopathy or radiculopathy, lumbosacral region; M54.5 Low back pain; G89.29 Other chronic pain; Z87.891 Personal history of nicotine dependence; Z98.84 Bariatric surgery status; Z88.2 Allergy status to sulfonamides; Z88.0 Allergy status to penicillin

== ENCOUNTER → 2016-11-30 | Outpatient (CLI) | payer OTHER ==
--- NOTE | 2016-12-11 00:13 | ECWPNPC ---
PATIENT NAME: DERICK HAYWOOD : 1960 GENDER: FEMALE VISIT DATE: 11/30/2016 DISCHARGE DATE: 11/30/16 1640 VISIT LOCKED DATE TIME: PHYSICIAN: KAR GOLDBERG RESOURCE: KAR GOLDBERG REASON FOR APPOINTMENT 1. LOW BACK PAIN HISTORY OF PRESENT ILLNESS HISTORY OF PRESENT ILLNESS: PAIN THE PATIENT DESCRIBES THE PAIN... 55 YEAR OLD FEMALE PATIENT WITH HISTORY OF CHRONIC LOW BACK PAIN. PATIENT DESCRIBES THE PAIN ACHING AND HAVING IT ALL THE TIME. PATIENT HAS A PAIN SCORE OF 4/10 AT TODAY'S VISIT. PATIENT REPORTS HURTING HER BACK IN 1999 WHILE MOVING A PATIENT. MRS. HAYWOOD HAS TRIED PHYSICAL THERAPY THAT DID NOT GIVE HER LONG LASTING RELIEF AND HAS ALSO TRIED INJECTIONS. PATIENT RECEIVED A BACK SURGERY IN 2015 AND STATES THAT IT DID AID IN PAIN RELIEF BUT SHE STILL HAS PAIN DAILY. PATIENT REPORTS THAT SHE HAS COMPLETED THE PSYCHOLOGICAL EVALUATION AND HAS HAD A LUMBAR MRI AND A THORACIC MRI. MRS. HAYWOOD STATES THAT SHE DOES WANT TO MOVE FORWARD WITH THE DCS TRIAL WITH [employer]. PATIENT HAS PATIENT DENIES UNEXPLAINABLE WEIGHT LOSS, FEVER, CHILLS, NEW CHANGES ON HER URINARY OR BOWEL CONTROL. FALL RISK SCREENING: SCREENING :NO FALLS IN THE PAST YEAR CURRENT MEDICATIONS TAKING VENLAFAXINE HCL 75 MG TABLET 1 TABLET WITH FOOD ORALLY DAILY TAKING MIRAPEX ER 1.5 MG TABLET EXTENDED RELEASE 24 HOUR 1 TABLET ORALLY ONCE A DAY TAKING MULTI COMPLETE - CAPSULE ORALLY DAILY TAKING VITAMIN B12 100 MCG TABLET ORALLY EVERY OTHER DAY TAKING VITAMIN D3 1000 UNIT CAPSULE 1 CAPSULE ORALLY ONCE A DAY TAKING BIOTIN MAXIMUM STRENGTH 5000 MCG CAPSULE 1 CAPSULE ORALLY ONCE A DAY TAKING PROTONIX 40 MG TABLET DELAYED RELEASE 1 TABLET ORALLY ONCE A DAY NOT-TAKING GABAPENTIN 300 MG CAPSULE 1 CAPSULE ORALLY FOR PAIN BID FOR PAIN DISCONTINUED PREVACID 15 MG CAPSULE DELAYED RELEASE 1 CAPSULE ORALLY ONCE A DAY DISCONTINUED NEXIUM 40 MG CAPSULE DELAYED RELEASE 1 CAPSULE ORALLY ONCE A DAY MEDICATION LIST REVIEWED AND RECONCILED WITH THE PATIENT PAST MEDICAL HISTORY CHRONIC PAIN GERD ALLERGIES PENICILLIN (FOR ALLERGIES USE ONLY): HIVES: ALLERGY SULFA (FOR ALLERGY USE ONLY): HIVES: ALLERGY SOCIAL HISTORY GENERAL: TOBACCO USE ARE YOU A:FORMER SMOKER HOW LONG HAS IT BEEN SINCE YOU LAST SMOKED?> 10 YEARS LUNG CANCER SCREENING SMOKING STATUS:FORMER SMOKER RECREATIONAL DRUG USE DRUG USE?NO CAFFEINE CAFFEINE USE?NO RASTAFARIAN RASTAFARIAN NO PREFERENCE LEARNING BARRIERS / SPECIAL NEEDS CHANGE FROM LAST VISIT?NO BARRIERS TO LEARNING?NO HEARING IMPAIRED?NO VISION IMPAIRED?YES :CORRECTIVE LENSES COGNITIVELY IMPAIRED?NO READINESS TO LEARN?NO LEARNING PREFERENCES?NO LEARNING CAPABILITIES PRESENT?NO EMOTIONAL BARRIERS?NO SPECIAL DEVICES?NO SPORTS MARKETER NEEDED?NO PSYCHOLOGICAL HX TREATMENTNO PAIN CLINIC PFS, CLERGY, PUBLIC HEALTH REFERRALS PFS REFERRAL NEEDED?NO CLERGY REFERRAL NEEDED?NO PUBLIC HEALTH REFERRAL NEEDED?NO WAS THE PROVIDER NOTIFIED OF ANY PERTINENT INFO?YES HAS THE PATIENT BEEN EDUCATED REGARDING HIS/HER PLAN OF CARE?YES HAS THE PATIENT BEEN EDUCATED REGARDING PAIN, THE RISK FOR PAIN, THE IMPORTANCE OF EFFECTIVE PAIN MANAGEMENT, AND THE PAIN ASSESSMENT PROCESS?YES PATIENT: ____. [facility]ANCE DIRECTIVES HEALTH CARE PROXY?YES NAME OF HCP [facility] CONTACT # FOR HCP [phone] DO YOU HAVE A COPY WITH YOU? NO DO YOU HAVE A DNR?NO WOULD YOU LIKE MORE INFORMATION?NO LIVING WILL?YES DO YOU HAVE A COPY WITH YOU?NO POWER OF HEARING CARE PROFESSIONAL?NO DOMESTIC VIOLENCE DO YOU FEEL SAFE IN YOUR ENVIRONMENT?YES 11/30/16 9807 REVIEWED. AD. REVIEW OF SYSTEMS REVIEWED BY: PROVIDER: KAR GOLDBERG MD . CONSTITUTIONAL: ANY CHANGE IN YOUR MEDICAL CONDITION? NO . CHILLS NO . FEVER NO . INFECTION: DO YOU HAVE NEW INFECTIONS? NO . DO YOU HAVE HISTORY OF MRSA? NO . MUSCULOSKELETAL: ANY NEW PATTERNS OF PAIN OR NUMBNESS? NO . GASTROENTEROLOGY: ANY NEW CHANGE IN BOWEL CONTROL? NO . GENITOURINARY: ANY NEW CHANGE IN BLADDER CONTROL? NO . IS THERE A CHANCE YOU COULD BE ? NO . HEMATOLOGY/LYMPH: DO YOU TAKE ANY BLOOD THINNERS? (FOR EXAMPLE- COUMADIN, PLAVIX, AGGRENOX, PLATEL, PRADAXA, OR XARELTO) NO . WHEN WAS YOUR LAST DOSE? DATE: TIME: . NEUROLOGY: HAVE YOU FALLEN IN THE PAST 6 MONTHS? NO . ANY NEW EXTREMITY NUMBNESS OR WEAKNESS? NO . CARDIOLOGY: DO YOU HAVE A PACEMAKER OR DEFIBRILLATOR? NO . RESPIRATORY: HAVE YOU BEEN SICK IN THE PAST WEEK? NO . FEVER NO . FLU LIKE SYMPTOMS? NO . COUGH NO . INTEGUMENTARY: DO YOU HAVE ANY RASHES OR OPEN SORES? NO . ALLERGIC/IMMUNO: ARE YOU ALLERGIC TO SHELLFISH OR IV DYE? NO . ANY NEW ALLERGIES? NO . PSYCHIATRIC: DO YOU HAVE THOUGHTS OF HURTING YOURSELF OR SOMEONE ELSE? NO . ARE YOU ABUSED, NEGLECTED, OR IN AN UNSAFE ENVIRONMENT? NO . ENDOCRINOLOGY: ARE YOU DIABETIC? NO . OTHER: DO YOU NEED ANY PRESCRIPTIONS? NO . IF YES, PLEASE LIST: ____ . ANY NEW PROBLEMS WITH YOUR MEDICATIONS? NO . WHEN DID YOU LAST EAT? ____ . WHEN DID YOU LAST DRINK? ____ . WHAT DID YOU LAST DRINK? ____ . NAME OF PERSON DRIVING YOU HOME? ____ . DO YOU HAVE ANY OTHER QUESTIONS OR CONCERNS NO . VITAL SIGNS WT 205 LBS, HT 66", BMI 33.08 INDEX, BP 130/82 MM HG, HR 72 /MIN, RR 16 /MIN, TEMP 97.6 F, OXYGEN SAT % 99%, SAFE IN ENV? (Y/N) Y, NA INITIALS AW 1515, REVIEWED BY: LISSY. EXAMINATION : PATIENT IS ALERT O X 3 AND COOPERATIVE. ANTALGIC GAIT. LIMPING FROM LEFT LEG. THERE IS TENDERNESS IN THE LOW BACK PARASPINAL SPINAL MUSCLE GROUP. LEFT LEG IS WEAKER THEN THE RIGHT AT EXTENSION AND FLEXION. LUMBAR MRI DONE ON 12/15/15 SHOWS THAT THERE ARE CYSTIC CHANGES WITHIN THE INFERIOR ENDPLATE OF L2 AND L3 AND THE SUPERIOR ENDPLATE OF L4. THERE IS FLUID WITHIN THE INTERVERTEBRAL DISC SPACES AT L2-3 AND L3-4. THERE IS ALSO FLUID IDENTIFIED WITHIN THE CENTER IF THE INTERBODY SPACER AT L3-4 LEVEL. THORACIC MRI DONE ON 05/29/16 SHOWS THAT THERE IS AN ABERRANT RIGHT SUBCLAVIAN ARTERY COURSING POSTERIOR TO THE TRACHEA AND ESOPHAGUS IN THE UPPER MEDIASTINUM; NO OTHER EXTRA SPINAL ABNORMALITY IS APPRECIATED. LUNGS CLEAR. ASSESSMENTS POSTLAMINECTOMY SYNDROME, NOT ELSEWHERE CLASSIFIED - M96.1 (PRIMARY) RADICULOPATHY OF LUMBAR REGION - M54.16 TREATMENT POSTLAMINECTOMY SYNDROME, NOT ELSEWHERE CLASSIFIED NOTES: WE DISCUSSED SEVERAL ISSUES WITH MRS. HAYWOOD'S PAIN MANAGEMENT CASE. AT THIS TIME THE PATIENT WILL CONTINUE WIT THE SAME MEDICATION REGIME BEFORE. PATIENT WILL RECEIVE CLEARANCE FORM HER PRIMARY CARE TO CONTINUE WITH THE DCS AT THIS TIME. PATIENT'S MRI'S AND PSYCHOLOGICAL EVALUATION WAS REVIEWED AND SHE IS CLEARED TO MOVE FORWARD. PATIENT WAS REMINDED TO NOT USE ANY BLOOD THINNER INCLUDING IBUPROFEN 10 DAYS PRIOR TO THE TRIAL. INSTRUCTIONS WERE GIVEN, QUESTIONS WERE ANSWERED, PATIENT REPORTS UNDERSTANDING AND AGREES WITH THE PLAN. I, NEREYDA SCRUGGS, DOCUMENTED THE ABOVE INFORMATION ACTING A SCRIBE FOR DR. GOLDBERG. I HAVE REVIEWED THE ABOVE DOCUMENT, WRITTEN BY NEREYDA HAYS AND I VERIFY THAT IT IS ACCURATE. PROCEDURE CODES FA211 ESTABILISHED PATIENT [facility] CHARGE DISPOSITION & COMMUNICATION FOLLOW UP 3 WEEKS ELECTRONICALLY SIGNED BY KAR GOLDBERG MD ON 12/10/2016 AT 12:48 PM EDT DISCLAIMER : THIS IS A VISIT SUMMARY EXTRACTED FROM THE [employer] CHART. IT IS NOT A COPY OF THE [employer] PROGRESS NOTE. MTDD
== END ==
LOC: M PAIN 15:00
PROVIDERS: ATTEND Anesthesiology
DX: M96.1 Postlaminectomy syndrome, not elsewhere classified (principal); M54.16 Radiculopathy, lumbar region; K21.9 Gastro-esophageal reflux disease without esophagitis; Z88.0 Allergy status to penicillin; Z88.2 Allergy status to sulfonamides; Z79.899 Other long term (current) drug therapy; Z87.891 Personal history of nicotine dependence

== ENCOUNTER → 2016-12-29 | Outpatient (CLI) | payer OTHER ==
--- NOTE | 2016-12-29 15:31 | REP ---
Partial thoracic spine series: Three views . History: Injection procedure for pain. 13 seconds of fluoroscopy time is reported. Findings: A sequence of 30 fluoroscopically obtained last image hold procedural spot radiographs of the thoracic spine document needle position and contrast injection associated with injection procedure. Signed by Jim Martinez MD 12/29/2016 03:22 P
--- NOTE | 2017-01-15 00:32 | ECWPNPC ---
PATIENT NAME: DERICK HAYWOOD : 1960 GENDER: FEMALE VISIT DATE: 12/29/2016 DISCHARGE DATE: 12/29/16 1328 VISIT LOCKED DATE TIME: PHYSICIAN: KAR GOLDBERG RESOURCE: KAR GOLDBERG REASON FOR APPOINTMENT 1. LOW BACK PAIN HISTORY OF PRESENT ILLNESS HISTORY OF PRESENT ILLNESS: PAIN THE PATIENT DESCRIBES THE PAIN... 56 YEAR OLD FEMALE PATIENT WITH HISTORY OF CHRONIC LOW BACK PAIN. PATIENT DESCRIBES THE PAIN ACHING AND HAVING IT ALL THE TIME. PATIENT HAS A PAIN SCORE OF 2/10 AT TODAY'S VISIT. PATIENT REPORTS HAVING OVER 85% RELIEF FROM THE PAIN AND REPORTS THE ONLY PAIN SHE HAS AT THIS TIME IS PAIN FROM THE ACTUAL PROCEDURE. PATIENT STATES SHE DID NOT NEED TO USE ANY OF HER MEDICATION. PATIENT DENIES UNEXPLAINABLE WEIGHT LOSS, FEVER, CHILLS, NEW CHANGES ON HER URINARY OR BOWEL CONTROL. FALL RISK SCREENING: SCREENING :NO FALLS IN THE PAST YEAR CURRENT MEDICATIONS TAKING VENLAFAXINE HCL 75 MG TABLET 1 TABLET WITH FOOD ORALLY DAILY TAKING MIRAPEX ER 1.5 MG TABLET EXTENDED RELEASE 24 HOUR 1 TABLET ORALLY ONCE A DAY TAKING MULTI COMPLETE - CAPSULE ORALLY DAILY TAKING VITAMIN B12 100 MCG TABLET ORALLY EVERY OTHER DAY TAKING VITAMIN D3 1000 UNIT CAPSULE 1 CAPSULE ORALLY ONCE A DAY TAKING BIOTIN MAXIMUM STRENGTH 5000 MCG CAPSULE 1 CAPSULE ORALLY ONCE A DAY TAKING PROTONIX 40 MG TABLET DELAYED RELEASE 1 TABLET ORALLY ONCE A DAY TAKING CLINDAMYCIN HCL 150 MG CAPSULE 1 CAPSULES ORALLY ( TO BE USED DURING DCS TRIAL) TID MDD3 NOT-TAKING GABAPENTIN 300 MG CAPSULE 1 CAPSULE ORALLY FOR PAIN BID FOR PAIN MEDICATION LIST REVIEWED AND RECONCILED WITH THE PATIENT PAST MEDICAL HISTORY CHRONIC PAIN GERD ALLERGIES PENICILLIN (FOR ALLERGIES USE ONLY): HIVES: ALLERGY SULFA (FOR ALLERGY USE ONLY): HIVES: ALLERGY SURGICAL HISTORY HYSTERECTOMY 1993 GALL BLADDER 2005 TONSILLECTOMY 1978 SPINAL SURGERY - CAGE 2016 GASTRIC BYPASS 2013 DCS TRIAL SOCIAL HISTORY GENERAL: TOBACCO USE ARE YOU A:FORMER SMOKER HOW LONG HAS IT BEEN SINCE YOU LAST SMOKED?> 10 YEARS LUNG CANCER SCREENING SMOKING STATUS:FORMER SMOKER ALCOHOL SCREENING POINTS1 INTERPRETATIONNEGATIVE RECREATIONAL DRUG USE DRUG USE?NO CAFFEINE CAFFEINE USE?NO MARITAL STATUS: . CATHOLIC CATHOLIC NO PREFERENCE LANGUAGE LANGUAGES SPOKEN:IVORIAN EDUCATION LEVEL OF EDUCATION:FINISHED HIGH SCHOOL LEARNING BARRIERS / SPECIAL NEEDS CHANGE FROM LAST VISIT?NO BARRIERS TO LEARNING?NO HEARING IMPAIRED?NO VISION IMPAIRED?YES :CORRECTIVE LENSES COGNITIVELY IMPAIRED?NO READINESS TO LEARN?NO LEARNING PREFERENCES?NO LEARNING CAPABILITIES PRESENT?NO EMOTIONAL BARRIERS?NO SPECIAL DEVICES?NO CHEMISTRY FACULTY MEMBER NEEDED?NO PSYCHOLOGICAL HX TREATMENTNO PAIN CLINIC PFS, CLERGY, PUBLIC HEALTH REFERRALS PFS REFERRAL NEEDED?NO CLERGY REFERRAL NEEDED?NO PUBLIC HEALTH REFERRAL NEEDED?NO WAS THE PROVIDER NOTIFIED OF ANY PERTINENT INFO?YES HAS THE PATIENT BEEN EDUCATED REGARDING HIS/HER PLAN OF CARE?YES HAS THE PATIENT BEEN EDUCATED REGARDING PAIN, THE RISK FOR PAIN, THE IMPORTANCE OF EFFECTIVE PAIN MANAGEMENT, AND THE PAIN ASSESSMENT PROCESS?YES PATIENT: ____. ADVANCE DIRECTIVES HEALTH CARE PROXY?YES NAME OF HCP [facility] CONTACT # FOR HCP [phone] DO YOU HAVE A COPY WITH YOU? NO DO YOU HAVE A DNR?NO WOULD YOU LIKE MORE INFORMATION?NO LIVING WILL?YES DO YOU HAVE A COPY WITH YOU?NO POWER OF 411 DIRECTORY ASSISTANCE OPERATOR?NO DOMESTIC VIOLENCE DO YOU FEEL SAFE IN YOUR ENVIRONMENT?YES 11/30/16 6852 REVIEWED. AD. HOSPITALIZATION/MAJOR DIAGNOSTIC PROCEDURE SURGERIES REVIEW OF SYSTEMS REVIEWED BY: PROVIDER: KAR GOLDBERG MD . CONSTITUTIONAL: ANY CHANGE IN YOUR MEDICAL CONDITION? NO . CHILLS NO . FEVER NO . INFECTION: DO YOU HAVE NEW INFECTIONS? NO . DO YOU HAVE HISTORY OF MRSA? NO . MUSCULOSKELETAL: ANY NEW PATTERNS OF PAIN OR NUMBNESS? NO, PT STATES PAIN RELIEF WITH DCS TRIAL . GASTROENTEROLOGY: ANY NEW CHANGE IN BOWEL CONTROL? NO . GENITOURINARY: ANY NEW CHANGE IN BLADDER CONTROL? NO . IS THERE A CHANCE YOU COULD BE ? NO . HEMATOLOGY/LYMPH: DO YOU TAKE ANY BLOOD THINNERS? (FOR EXAMPLE- COUMADIN, PLAVIX, AGGRENOX, PLATEL, PRADAXA, OR XARELTO) NO . WHEN WAS YOUR LAST DOSE? DATE: TIME: . NEUROLOGY: HAVE YOU FALLEN IN THE PAST 6 MONTHS? NO . ANY NEW EXTREMITY NUMBNESS OR WEAKNESS? NO . CARDIOLOGY: DO YOU HAVE A PACEMAKER OR DEFIBRILLATOR? NO . RESPIRATORY: HAVE YOU BEEN SICK IN THE PAST WEEK? NO . FEVER NO . FLU LIKE SYMPTOMS? NO . COUGH NO . INTEGUMENTARY: DO YOU HAVE ANY RASHES OR OPEN SORES? NO . ALLERGIC/IMMUNO: ARE YOU ALLERGIC TO SHELLFISH OR IV DYE? NO . ANY NEW ALLERGIES? NO . PSYCHIATRIC: DO YOU HAVE THOUGHTS OF HURTING YOURSELF OR SOMEONE ELSE? NO . ARE YOU ABUSED, NEGLECTED, OR IN AN UNSAFE ENVIRONMENT? NO . ENDOCRINOLOGY: ARE YOU DIABETIC? NO . OTHER: DO YOU NEED ANY PRESCRIPTIONS? NO . IF YES, PLEASE LIST: ____ . ANY NEW PROBLEMS WITH YOUR MEDICATIONS? NO . WHEN DID YOU LAST EAT? ____ . WHEN DID YOU LAST DRINK? ____ . WHAT DID YOU LAST DRINK? ____ . NAME OF PERSON DRIVING YOU HOME? ____ . DO YOU HAVE ANY OTHER QUESTIONS OR CONCERNS NO, PT DENIES GETTING FLU SHOT THIS SEASON, DOES NOT PLAN ON GETTING . VITAL SIGNS WT 202.0 LBS, HT 66", BMI 32.60 INDEX, BP 126/70 MM HG, HR 86 /MIN, RR 16 /MIN, TEMP 96.8 F, OXYGEN SAT % 98%, NA INITIALS TL 1129, REVIEWED BY: NAHUM. EXAMINATION : PATIENT IS ALERT O X 3 AND COOPERATIVE. ANTALGIC GAIT. LIMPING FROM LEFT LEG. THERE IS TENDERNESS IN THE LOW BACK PARASPINAL SPINAL MUSCLE GROUP. LEFT LEG IS WEAKER THEN THE RIGHT AT EXTENSION AND FLEXION. LUMBAR MRI DONE ON 12/15/15 SHOWS THAT THERE ARE CYSTIC CHANGES WITHIN THE INFERIOR ENDPLATE OF L2 AND L3 AND THE SUPERIOR ENDPLATE OF L4. THERE IS FLUID WITHIN THE INTERVERTEBRAL DISC SPACES AT L2-3 AND L3-4. THERE IS ALSO FLUID IDENTIFIED WITHIN THE CENTER IF THE INTERBODY SPACER AT L3-4 LEVEL. THORACIC MRI DONE ON 05/29/16 SHOWS THAT THERE IS AN ABERRANT RIGHT SUBCLAVIAN ARTERY COURSING POSTERIOR TO THE TRACHEA AND ESOPHAGUS IN THE UPPER MEDIASTINUM; NO OTHER EXTRA SPINAL ABNORMALITY IS APPRECIATED. LUNGS CLEAR. LEADS WERE REMOVED FULL AND INTACT. ASSESSMENTS POSTLAMINECTOMY SYNDROME, NOT ELSEWHERE CLASSIFIED - M96.1 (PRIMARY) RADICULOPATHY OF LUMBAR REGION - M54.16 TREATMENT POSTLAMINECTOMY SYNDROME, NOT ELSEWHERE CLASSIFIED NOTES: WE DISCUSSED SEVERAL ISSUES WITH MRS. HAYWOOD'S PAIN MANAGEMENT CASE. AT THIS TIME THE PATIENT WILL CONTINUE WITH THE SAME MEDICATION REGIME BEFORE. PATIENT REPORTS HAVING OVER 85% RELIEF FROM THE INJECTION AND STATES SHE WOULD LIKE TO PROCEED WITH THE PERCUTANEOUS IMPLANT AT THIS TIME WITH [employer]ist. WE DISCUSSED THE RISKS, BENENFITS, AND ALTNERATIVES OF THE PERMANENT AND THE PATIENT WOULD LIKE TO PROCEED. INSTRUCTIONS WERE GIVEN, QUESTIONS WERE ANSWERED, PATIENT REPORTS UNDERSTANDING AND AGREES WITH THE PLAN. I, NEREYDA SCRUGGS, DOCUMENTED THE ABOVE INFORMATION ACTING A SCRIBE FOR DR. GOLDBERG. I HAVE REVIEWED THE ABOVE DOCUMENT, WRITTEN BY NEREYDA ROSARIOIBBlair AND I VERIFY THAT IT IS ACCURATE. DIAGNOSTIC IMAGING [facility] GUIDANCE (PAIN)[id number] DISPOSITION & COMMUNICATION FOLLOW UP 3 WEEKS ELECTRONICALLY SIGNED BY KAR GOLDBERG MD ON 01/14/2017 AT 04:16 PM EST DISCLAIMER : THIS IS A VISIT SUMMARY EXTRACTED FROM THE [employer] CHART. IT IS NOT A COPY OF THE [employer] PROGRESS NOTE. MTDD
== END ==
LOC: M PAIN 11:00
PROVIDERS: ATTEND Anesthesiology
DX: M96.1 Postlaminectomy syndrome, not elsewhere classified (principal); M54.16 Radiculopathy, lumbar region; K21.9 Gastro-esophageal reflux disease without esophagitis; Z88.0 Allergy status to penicillin; Z88.2 Allergy status to sulfonamides; Z79.899 Other long term (current) drug therapy; Z87.891 Personal history of nicotine dependence
CPT/HCPCS: 76000; G0463

== ENCOUNTER → 2017-03-02 | Outpatient (CLI) | payer OTHER | LOC: M PAIN 09:00 | DX: G89.29 Other chronic pain (principal); M96.1 Postlaminectomy syndrome, not elsewhere classified; M54.40 Lumbago with sciatica, unspecified side; K21.9 Gastro-esophageal reflux disease without esophagitis; Z88.0 Allergy status to penicillin; Z88.2 Allergy status to sulfonamides; Z79.899 Other long term (current) drug therapy; Z87.891 Personal history of nicotine dependence | CPT/HCPCS: G0463 ==

== ENCOUNTER 2017-03-19 06:10 | Day surgery (SDC) | payer OTHER ==
[2017-03-19] MEDS ORDERED: LR 1,000 ML IV (06:15)
[2017-03-19] MEDS ORDERED: LIDOCAINE 2% INJ 100 MG/5 ML SDV (FOR ANES.) As Ordered (07:15)
[2017-03-19] MEDS ORDERED: PROPOFOL 200 MG/20 ML VIAL As Ordered ×3 (07:15→12:41)
[2017-03-19] MEDS ORDERED: fentaNYL 100 MCG/2 ML INJECTION (J3010) As Ordered ×3 (07:16→09:23)
[2017-03-19] MEDS ORDERED: MIDAZOLAM INJ 2 MG/2 ML VIAL (J2250) As Ordered ×3 (07:16→09:46)
[2017-03-19] MEDS ORDERED: LIDOCAINE W/EPINEPHRINE 1% 20ML VIAL As Ordered (07:22)
[2017-03-19] MEDS: CLINDAMYCIN 600 MG in APPROPRIATE DILUENT 1 EA IV ×3 (07:35→23:28)
[2017-03-19] MEDS: THROMBIN SOLN 20,000 UNITS KIT As Ordered ×2 (10:19→11:53)
[2017-03-19] MEDS: BACITRACIN PWD 50,000 UNITS VIAL As Ordered (10:19)
[2017-03-19] MEDS: CLINDAMYCIN 600 MG/50 ML PREMIX BAG As Ordered (10:22)
[2017-03-19] MEDS: LIDOCAINE W/EPINEPHRINE 1% 20ML VIAL As Ordered (10:23)
[2017-03-19] MEDS ORDERED: ONDANSETRON 4MG/2ML VIAL (J2405) As Ordered (12:12)
[2017-03-19] MEDS ORDERED: HYDROmorphone HCL 2 MG/ML 1ML VIAL (J1170) As Ordered (12:26)
[2017-03-19] MEDS ORDERED: MORPHINE 10 MG/ML 1ML VIAL IV (14:15)
[2017-03-19] MEDS ORDERED: ONDANSETRON 4MG/2ML VIAL (J2405) IV ×2 (14:15→17:30)
[2017-03-19] MEDS: LR 1,000 ML IV (14:15)
[2017-03-19] MEDS ORDERED: PERCOCET 5MG/325MG TAB PO (14:15)
[2017-03-19] MEDS ORDERED: METOCLOPRAMIDE INJ 10MG/2ML VIAL (J2765) IV (14:15)
[2017-03-19] MEDS ORDERED: fentaNYL 100 MCG/2 ML INJECTION (J3010) IV (14:15)
[2017-03-19] MEDS ORDERED: oxyCODONE 5MG TAB PO (14:30)
[2017-03-19] MEDS: ACETAMINOPHEN TAB 650MG DOSE (2X325MG) PO (16:24)
[2017-03-19] MEDS: MULTIVITAMINS/MINERALS THERAP 1 TAB PO (18:30)
[2017-03-19] MEDS: oxyCODONE 5MG TAB PO (18:30)
[2017-03-19] MEDS: PRAMIPEXOLE 1 MG TAB PO (21:13)
[2017-03-19] MEDS: DOCUSATE SODIUM 100 MG CAP PO (21:13)
[2017-03-20] MEDS: oxyCODONE 5MG TAB PO (00:18)
[2017-03-20] MEDS: CLINDAMYCIN 600 MG in APPROPRIATE DILUENT 1 EA IV (05:46)
[2017-03-20] MEDS ORDERED: OYSTER SHELL CALCIUM 500 MG TAB PO (09:00)
[2017-03-20] MEDS ORDERED: PANTOPRAZOLE 40MG TAB (PROTONIX) PO ×2 (09:00)
[2017-03-20] MEDS ORDERED: VENLAFAXINE **XR** 75MG CAPSULE PO (09:00)
[2017-03-20] MEDS ORDERED: VITAMIN D 1,000 INTERNATIONAL UNITS TABLET PO (09:00)
== END 2017-03-20 09:25 | disposition home or self-care (01) ==
LOC: M SDC 06:10 → M PED 15:10
DX: M96.1 Postlaminectomy syndrome, not elsewhere classified (principal); G89.4 Chronic pain syndrome; K21.9 Gastro-esophageal reflux disease without esophagitis; M12.9 Arthropathy, unspecified; M54.5 Low back pain; R29.898 Other symptoms and signs involving the musculoskeletal system; G62.9 Polyneuropathy, unspecified; R06.83 Snoring; G47.33 Obstructive sleep apnea (adult) (pediatric); F32.9 Major depressive disorder, single episode, unspecified; Z88.0 Allergy status to penicillin; Z88.2 Allergy status to sulfonamides; Z79.899 Other long term (current) drug therapy; Z90.710 Acquired absence of both cervix and uterus; Z98.84 Bariatric surgery status
CPT/HCPCS: 63685

== ENCOUNTER → 2017-04-06 | Outpatient (CLI) | payer OTHER | LOC: M PAIN 11:30 | DX: G89.29 Other chronic pain (principal); M54.5 Low back pain; K21.9 Gastro-esophageal reflux disease without esophagitis; Z87.891 Personal history of nicotine dependence; Z79.899 Other long term (current) drug therapy; Z88.0 Allergy status to penicillin; Z88.2 Allergy status to sulfonamides | CPT/HCPCS: G0463 ==

== ENCOUNTER → 2017-04-17 | Outpatient (CLI) | payer OTHER | LOC: M PAIN 15:30 | DX: G89.29 Other chronic pain (principal); M54.5 Low back pain; K21.9 Gastro-esophageal reflux disease without esophagitis; Z87.891 Personal history of nicotine dependence; Z79.899 Other long term (current) drug therapy; Z88.0 Allergy status to penicillin; Z88.2 Allergy status to sulfonamides | CPT/HCPCS: G0463 ==

== ENCOUNTER → 2017-07-23 | Outpatient (CLI) | payer OTHER | LOC: M PAIN 13:30 | DX: M96.1 Postlaminectomy syndrome, not elsewhere classified (principal); R29.898 Other symptoms and signs involving the musculoskeletal system; M54.16 Radiculopathy, lumbar region; Z79.899 Other long term (current) drug therapy; Z88.0 Allergy status to penicillin; Z88.2 Allergy status to sulfonamides; Z87.39 Personal history of other diseases of the musculoskeletal system and connective tissue; Z98.84 Bariatric surgery status; Z87.891 Personal history of nicotine dependence | CPT/HCPCS: G0463 ==

== ENCOUNTER 2017-08-02 11:13 | Emergency (ER) | payer OTHER ==
[2017-08-02] MEDS: traMADol 50 MG TAB PO (12:12)
[2017-08-02] MEDS: ACETAMINOPHEN TAB 650MG DOSE (2X325MG) PO (12:12)
== END 2017-08-02 12:53 | disposition home or self-care (01) ==
LOC: M ED 11:13
DX: S39.012A Strain of muscle, fascia and tendon of lower back, initial encounter (principal); X58.XXXA Exposure to other specified factors, initial encounter; Y92.9 Unspecified place or not applicable; Y93.89 Activity, other specified; Y99.0 Civilian activity done for income or pay; Z79.899 Other long term (current) drug therapy; Z88.0 Allergy status to penicillin; Z88.2 Allergy status to sulfonamides
CPT/HCPCS: 99284

== ENCOUNTER → 2018-06-13 | Outpatient (REF) | payer OTHER ==
[~2018-06-13] MED LIST changes: +BIOT10008 PO; +CALC12504 PO; -GABA-283 PO; +GABA-845 PO; +MIRA1.5T4; +PANT40TA3; +ROBA750T4 PO; +TIZA2CAP PO; +VENL75CA47; +VITA-182 PO; +VITA100L PO
== END ==
LOC: M SFHCLERA 14:37
PROVIDERS: ATTEND Physician Assistant
DX: J02.9 Acute pharyngitis, unspecified (principal)

== ENCOUNTER → 2018-06-13 | Outpatient (CLI) | payer OTHER ==
--- NOTE | 2018-06-13 15:43 | REP ---
Chest x-ray: Two views. History: Cough, fever and chills. No comparison study. Findings: The patient has a dorsal column stimulator lead in place in the mid thoracic spine. The lungs are well inflated and clear. The pleural angles are sharp. Heart size is normal. Pulmonary vasculature is not increased. There are degenerative disc changes in the thoracic spine. Impression: Dorsal column stimulator in place. Otherwise no acute disease. No infiltrate seen. Electronically Signed by Jim Martinez MD 06/13/2018 04:26 P
== END ==
LOC: M LRY 14:17
PROVIDERS: ATTEND Physician Assistant
DX: R05 Cough (principal); R50.9 Fever, unspecified; Z96.698 Presence of other orthopedic joint implants
CPT/HCPCS: 71046; 87804; 87880; 94640; G0463

== ENCOUNTER → 2019-04-02 | Outpatient (REF) | payer OTHER ==
[~2019-04-02] MED LIST changes: -CALC12504 PO; +CALC500T61 PO
== END ==
LOC: M SFHCLERA 18:13
PROVIDERS: ATTEND Nurse Practitioner Family
DX: R35.0 Frequency of micturition (principal)
CPT/HCPCS: 81002; 87088; 87186; G0463

== ENCOUNTER → 2019-04-24 | Outpatient (REF) | payer OTHER | LOC: M SFHCLERA 18:52 | PROVIDERS: ATTEND Physician Assistant | DX: R30.0 Dysuria (principal) | CPT/HCPCS: 81002; 87088; 87186; G0463 ==

== ENCOUNTER → 2020-10-23 | Outpatient (REF) | payer OTHER ==
[~2020-10-23] MED LIST changes: +GABA-283 PO; -GABA-845 PO; +MIRA1.5T; -MIRA1.5T4; +PANT40TA29; -PANT40TA3
== END ==
LOC: M WUC 19:29
PROVIDERS: ATTEND Physician Assistant
DX: R30.0 Dysuria (principal)

== ENCOUNTER → 2022-01-20 | Outpatient (REF) | LOC: M LAB 08:58 ==